=== PATIENT | female | born 1955 | race Caucasian/White ===

== ENCOUNTER 2017-06-01 10:04 | Outpatient (POV) | payer BC, SELFPAY | END 2017-06-01 12:08 | disposition home or self-care (01) | PROVIDERS: Visit Provider Podiatrist | DX: M25.572 Pain in left ankle and joints of left foot (principal); M25.571 Pain in right ankle and joints of right foot; M76.62 Achilles tendinitis, left leg; M77.8 Other enthesopathies, not elsewhere classified | CPT/HCPCS: 99213 ==

== ENCOUNTER → 2017-07-15 10:38 | Outpatient (CLI) | payer BC, SELFPAY ==
[2017-07-15 11:01] LABS: Hemoglobin A1C 6.2 % (0.0-7.0)
[2017-07-15 11:54] LABS: Alanine Aminotransferase 98 U/L (12-78); Albumin Level 4.1 gm/dL (3.4-5.0); Albumin/Globulin Ratio 1.4 (1.1-1.8); Alkaline Phosphatase 136 U/L (46-116); Anion Gap 9.2 mEq/L (5-15); Aspartate Amino Transferase 45 U/L (15-37); Bilirubin,Total 0.4 mg/dL (0.2-1.0); Blood Urea Nitrogen 14 mg/dL (7-18); Calcium 8.9 mg/dL (8.5-10.1); Carbon Dioxide 29 mmol/L (21.0-32.0); Chloride 109 mmol/L (98-107); Creatinine,Serum 0.81 mg/dL (0.55-1.02); Estimated Glomerular Filt Rate 72 ml/min (>60); Free T4 (Free Thyroxine) 1.04 ng/dl (0.76-1.46); GFR (African American) 88 ML/MIN (>60); Glucose 119 mg/dL (74-106); Potassium 4.2 mmoL/L (3.5-5.1); Sodium 143 mmol/L (136-145); Thyroid Stimulating Hormone 3.06 uIU/ml (0.358-3.740); Total Protein,Serum 7.1 gm/dL (6.4-8.2)
== END ==
PROVIDERS: PCP Nurse Practitioner Family; Visit Provider Nurse Practitioner Family
DX: R73.9 Hyperglycemia, unspecified (principal); I10 Essential (primary) hypertension; E03.9 Hypothyroidism, unspecified
CPT/HCPCS: 36415; 80053; 83036; 84439; 84443

== ENCOUNTER → 2018-03-03 11:17 | Outpatient (CLI) | payer BC, SELFPAY ==
[2018-03-03 13:11] LABS: Alanine Aminotransferase 108 U/L (12-78); Albumin Level 3.8 gm/dL (3.4-5.0); Albumin/Globulin Ratio 1.2 (1.1-1.8); Alkaline Phosphatase 118 U/L (46-116); Anion Gap 10.4 mEq/L (5-15); Aspartate Amino Transferase 49 U/L (15-37); Bilirubin,Total 0.5 mg/dL (0.2-1.0); Blood Urea Nitrogen 13 mg/dL (7-18); Calcium 8.9 mg/dL (8.5-10.1); Carbon Dioxide 28 mmol/L (21.0-32.0); Chloride 107 mmol/L (98-107); Chol/HDL Ratio 3.5 (1-3.5); Cholesterol 183 mg/dL (140-200); Creatinine,Serum 0.89 mg/dL (0.55-1.02); Estimated Glomerular Filt Rate 65 ml/min (>60); GFR (African American) 78 ML/MIN (>60); Globulin 3.3 gm/dl (1.3-3.2); Glucose 111 mg/dL (74-106); HDL Cholesterol 53 mg/dL (29-89); LDL Cholesterol 106 mg/dL (0-130); Potassium 4.4 mmoL/L (3.5-5.1); Sodium 141 mmol/L (136-145); Total Protein,Serum 7.1 gm/dL (6.4-8.2); Triglycerides 122 mg/dL (30-200); VLDL Cholesterol 24 mg/dL (0-40)
== END ==
PROVIDERS: PCP Family Medicine; Visit Provider Nurse Practitioner Family
DX: E03.9 Hypothyroidism, unspecified (principal); E78.5 Hyperlipidemia, unspecified; R94.5 Abnormal results of liver function studies
CPT/HCPCS: 36415; 80053; 80061; 84443

== ENCOUNTER 2018-08-19 17:47 | Emergency (ER) | payer BC, SELFPAY ==
[2018-08-19 18:09] VITALS: BP 154/80; PULSE 88; RESP 18; TEMP 36.9; O2SAT 94; BMI 37.9
--- NOTE | 2018-08-19 18:22 | PC.NURSE ---
dr mendosa at bedside
--- NOTE | 2018-08-19 18:22 | PC.NURSE ---
Dr Bang at bedside
--- NOTE | 2018-08-19 18:24 | XR_ITS ---
XR finger LT min 2V Ordering Physician: Freddy Bang MD Patient Age: 62 years: Female HISTORY: ITS.REASON: cut with table saw . TECHNIQUE: 3 view left index finger COMPARISON : June 2010 left hand 3 view FINDINGS Soft tissue disruption, noted at distal phalanx with soft tissue. Thumb from the recent injury. However the underlying bone appears to be intact.-Specifically the cortex of the distal tuft of thumb appears smooth and intact. No disruption or fracture evident. The remainder of the left thumb appears satisfactory an unremarkable. I suspect there is some minimal debris beneath the fingernail of the distal . The IP joint of thumb intact. The first MCP joint and carpal metacarpal joint intact. IMPRESSION: No fracture at the left thumb.. Distal tuft intact. Soft tissue injury at tip of thumb notedts [(
--- NOTE | 2018-08-19 18:24 | HMH.EDGENADL ---
ED Disposition Clinical Impression: Laceration of left thumb Qualifiers: Encounter type: initial encounter Damage to nail status: without damage Foreign body presence: without foreign body Qualified Code(s): S61.012A - Laceration without foreign body of left thumb without damage to nail, initial encounter Disposition: Home, Self-Care Condition on Discharge: Good Instructions: DI for Laceration Repair Additional Instructions: Additional instructions for HAND LACERATION: Clean the wound daily with soap and water. Avoid submerging the wound. No swimming.DO NOT USE any antibiotic ointment such as Neosporin, Polysporin, or triple antibiotic. This will delay healing. See your primary care physician in 2-3 days for a wound check. See your primary care physician or return to the [facility] in 10 days for suture removal. The [facility] is open 9 AM to 9 PM 7 days a week. Return if any signs of infection including increasing pain, pus drainage, swelling, redness, red streaks, or fever. Additional instructions for CONTROLLED SUBSTANCES: You have been prescribed a medication that is a controlled substance. Controlled substances include pain medications known as opiates and sedative nerve medications known as benzodiazepines. Some common opiates include: Codeine (such as Tylenol #3) Hydrocodone (Vicodin, Lortab, Lorcet, [place]) Oxycodone (Percocet, Percodan, Oxycodone, Oxy IR) Some common benzodiazepines include: Diazepam (Valium) Lorazepam (Ativan) Alprazolam (Xanax) Clonazepam (Klonopin) Oxazepam (Serax) All of these controlled substances are highly addictive and frequently abused. Misuse can and frequently does lead to addiction as well as overdose and . Medication should be stored in a locked cabinet or other secure storage unit. Do not store the medication in a motor vehicle. Short term supplies, 3 days or less, are prescribed because of the highly addictive nature of the medication. Any of the controlled substance medication NOT taken should be disposed of properly and NOT SAVED. The recommended method of disposing of unused medications is: Place the medicines in a sealable plastic bag. If the medicine is a solid, crush it or add water to dissolve it. Add something undesirable (cat litter, coffee grounds, etc.) Dispose of sealed bag in household trash Do not flush or pour unused medicines down a sink or drain. Controlled substances should not be shared, given away or sold. Because of the addictive nature and frequent abuse, these medications are sometimes stolen. These medications should be kept in a safe place where they cannot be stolen. Do not keep them in your car or purse. Lost or stolen prescriptions for controlled substances WILL NOT BE REFILLED in this emergency department, regardless of whether a police report was filed. Referrals: Los Dc MD [Primary Care Provider] - - Critical Care Critical Care Time: No Attestation: On , the high probability of a clinically significant, sudden or life threatening deterioration of the following system(s) required my full and direct attention, intervention and personal management. The time I documented below is in addition to time spent performing reported procedures but includes the following listed in this critical care notation. Medical Decision Making - Giovanny Inquiry Pt receiving controlled substance: Yes Giovanny was queried for this patient: Yes Reference #:: [id number] Risks and benefits of using a controlled substance: were discussed with pt by me Comment: 0 rxs. Vital Signs: 08/19/18 18:09 Temperature 98.4 F Temperature Source Oral Pulse Rate [Right Radial] 88 Respiratory Rate 18 Blood Pressure [Right Arm] 154/80 H Blood Pressure Mean [Right Arm] 104 Blood Pressure Source [Right Arm] Automatic Cuff Blood Pressure Position [Right Arm] Sitting 02 Sat by Pulse Oximetry 94 L Oxygen Delivery Method Sandra
[2018-08-19 19:32] VITALS: BP 123/78; PULSE 79; RESP 17; TEMP 36.6; O2SAT 100
== END 2018-08-19 19:35 | disposition home or self-care (01) ==
PROVIDERS: Emergency Provider Emergency Medicine; PCP Family Medicine
DX: S61.012A Laceration without foreign body of left thumb without damage to nail, initial encounter (principal); W31.2XXA Contact with powered woodworking and forming machines, initial encounter; Y92.019 Unspecified place in single-family (private) house as the place of occurrence of the external cause; E78.5 Hyperlipidemia, unspecified; I10 Essential (primary) hypertension
CPT/HCPCS: 12002; 73140; 99282

== ENCOUNTER → 2019-06-08 09:18 | Outpatient (CLI) | payer BC, SELFPAY ==
[2019-06-08 11:02] LABS: Alanine Aminotransferase 75 U/L (12-78); Albumin Level 3.8 gm/dL (3.4-5.0); Albumin/Globulin Ratio 1.2 (1.1-1.8); Alkaline Phosphatase 126 U/L (46-116); Anion Gap 12.9 mEq/L (5-15); Aspartate Amino Transferase 35 U/L (15-37); Bilirubin,Direct 0.1 mg/dL (0.0-0.2); Bilirubin,Indirect 0.4 mg/dL (0.0-0.9); Bilirubin,Total 0.5 mg/dL (0.2-1.0); Blood Urea Nitrogen 19 mg/dL (7-18); Calcium 8.8 mg/dL (8.5-10.1); Carbon Dioxide 29 mmol/L (21.0-32.0); Chloride 106 mmol/L (98-107); Creatinine,Serum 0.84 mg/dL (0.55-1.02); Estimated Glomerular Filt Rate 69 ml/min (>60); Free T4 (Free Thyroxine) 0.94 ng/dl (0.76-1.46); GFR (African American) 83 ML/MIN (>60); Globulin 3.2 gm/dl (1.3-3.2); Glucose 117 mg/dL (74-106); Potassium 4.9 mmoL/L (3.5-5.1); Sodium 143 mmol/L (136-145)
[2019-06-08 11:31] LABS: Hemoglobin A1C 6.2 % (0.0-7.0)
== END ==
PROVIDERS: Visit Provider Nurse Practitioner Family
DX: E78.5 Hyperlipidemia, unspecified (principal); R73.9 Hyperglycemia, unspecified; I10 Essential (primary) hypertension; E03.9 Hypothyroidism, unspecified
CPT/HCPCS: 36415; 80053; 80076; 83036; 84439; 84443

== ENCOUNTER → 2020-02-04 14:23 | Outpatient (CLI) | payer BC, SELFPAY ==
--- NOTE | 2020-02-04 14:29 | XR_ITS ---
PROCEDURE: XR KNEE LT 3V CLINICAL INDICATION: LT KNEE PAIN COMPARISON: No exams were available for comparison FINDINGS: No fracture or dislocation. No lytic or blastic change. There is normal mineralization. There is very minimal spurring of the medial aspect of the medial tibial plateau and along the posterior aspect of the proximal tibia. There is increased density in the suprapatellar region suggesting knee joint effusion Other findings:None. IMPRESSION: Suspect knee joint effusion with minimal degenerative changes Dictated b Diaz Castillo MD 02/04/2020 15:15 Diaz Castillo MD in [place] 02/04/2020 15:15
== END ==
PROVIDERS: PCP Nurse Practitioner Family; Visit Provider Nurse Practitioner Family
DX: M25.569 Pain in unspecified knee (principal)
CPT/HCPCS: 73562

== ENCOUNTER → 2020-05-06 09:59 | Outpatient (CLI) | payer BC, SELFPAY ==
[2020-05-06 11:51] LABS: Alanine Aminotransferase 38 U/L (12-78); Albumin Level 4.3 g/dl (3.5-5.0); Albumin/Globulin Ratio 1.6 (1.1-1.8); Alkaline Phosphatase 118 U/L (38-126); Anion Gap 9.9 mEq/L (5-15); Aspartate Amino Transferase 34 U/L (14-36); Bilirubin,Total 0.8 mg/dl (0.2-1.3); Blood Urea Nitrogen 15 mg/dl (7-17); Calcium 9.5 mg/dl (8.4-10.2); Carbon Dioxide 31 mmol/L (22.0-30.0); Chloride 106 mmol/L (98-107); Chol/HDL Ratio 3.5 (1-3.5); Cholesterol 187 mg/dl (140-200); Estimated Glomerular Filt Rate 85 ml/min (>60); GFR (African American) 103 ML/MIN (>60); Globulin 2.7 g/dL (1.3-3.2); Glucose 108 mg/dl (74-100); HDL Cholesterol 53 mg/dl (40-60); Potassium 4.9 mmoL/L (3.5-5.1); Sodium 142 mmol/L (136-145); Triglycerides 116 mg/dl (30-150); VLDL Cholesterol 23 mg/dL (0-40)
[2020-05-06 12:01] LABS: Direct LDL Cholesterol 111.24 mg/dL (100-129)
[2020-05-06 12:06] LABS: Free T4 (Free Thyroxine) 1.43 ng/dl (0.78-2.19)
[2020-05-06 12:20] LABS: Thyroid Stimulating Hormone 2.32 uIU/mL (0.465-4.68)
[2020-05-06 13:26] LABS: Hemoglobin A1C 5.6 % (4.0-6.0)
== END ==
PROVIDERS: Visit Provider Nurse Practitioner Family
DX: I10 Essential (primary) hypertension (principal); E03.9 Hypothyroidism, unspecified; E78.5 Hyperlipidemia, unspecified; R73.9 Hyperglycemia, unspecified
CPT/HCPCS: 36415; 80053; 80061; 83036; 84439; 84443

== ENCOUNTER → 2021-06-08 11:31 | Outpatient (CLI) | payer BC, SELFPAY ==
[2021-06-08 12:16] LABS: Coronavirus 19, PCR Not Detected (NotDetected); Influenza A, PCR Not Detected (NotDetected); Influenza B, PCR Not Detected (NotDetected)
[2021-06-08 12:23] LABS: Basophils # 0.1 K/mm3 (0-0.2); Basophils % 0.7 % (0.1-2.0); Eosinophils # 0.1 K/mm3 (0.0-0.4); Eosinophils % 1.4 % (0.1-12.0); Hematocrit 35.9 % (37.0-47.0); Hemoglobin 12.5 g/dL (12.2-16.2); Lymphocytes # 1.9 K/mm3 (0.7-4.5); Lymphocytes % 27.3 % (10-50); Mean Corpuscular HGB Conc 34.9 g/dL (31.8-35.4); Mean Corpuscular Hemoglobin 29.1 pg (27.0-31.2); Mean Corpuscular Volume 83.5 fl (81-99); Mean Platelet Volume 8.6 fl (7.4-10.4); Monocytes # 0.3 K/mm3 (0.1-1.0); Monocytes % 4.9 % (1.7-9.3); Neutrophils # 4.5 K/mm3 (1.8-7.8); Neutrophils % 65.7 % (37.0-80.0); Platelet Count 182 K/mm3 (142-424); Red Cell Distribution Width 14.1 % (11.5-17.5); White Blood Count 6.9 K/mm3 (4.8-10.8)
== END ==
PROVIDERS: PCP Nurse Practitioner Family; Visit Provider Nurse Practitioner
DX: Z20.822 Contact with and (suspected) exposure to COVID-19 (principal)
CPT/HCPCS: 36415; 85025; C9803; U0003; U0005

== ENCOUNTER → 2021-07-16 10:03 | Outpatient (CLI) | payer BC, SELFPAY | PROVIDERS: Visit Provider Nurse Practitioner | DX: Z20.822 Contact with and (suspected) exposure to COVID-19 (principal) | CPT/HCPCS: C9803; U0003; U0005 ==

== ENCOUNTER 2022-02-25 10:39 | Emergency (ER) | payer BC, SELFPAY ==
[2022-02-25 12:11] VITALS: BP 137/85; PULSE 74; RESP 16; TEMP 36.6; O2SAT 97; BMI 41.1
--- NOTE | 2022-02-25 12:14 | XR_ITS ---
FINAL REPORT CLINICAL HISTORY: pain in knee, medial knee pain after stepping off a director foundation FINDINGS: RIGHT KNEE Three views of the right knee were obtained. There is no acute fracture or dislocation. There is some mild narrowing of the lateral compartment joint space. There are osteophytes seen at the right lateral joint margin. Soft tissues are unremarkable. IMPRESSION: No acute bony abnormality. Reviewed, Interpreted and Dictated by Yomi Edge MD Transcribed by Mary Ellen Larson Authenticated and [facility]
--- NOTE | 2022-02-25 12:18 | EXP.UTC ---
Discharge Plan Disposition Patient Disposition: Home, Self-Care Condition: Good Referrals Referrals: Griselda Hughes APRN [Primary Care Provider] - Enter time for follow up Activity Restrictions/Add. Instructions Additional Instructions/Restrictions: Rest the extremity, apply ice for 15 minutes as tolerated three or four times per day, Wear the kareem wrap for compression, Elevate the extremity as tolerated while you are resting. Take ibuprofen for pain. I sent in a prescription to your pharmacy. Follow up with your orthopedic physician. Make sure you take the disk with the x-rays on it from here. Follow up with your regular doctor. GO TO THE ER FOR ANY WORSENING SYMPTOMS Clinical Impressions Clinical Impression: Right knee sprain Instructions Patient Instructions: How to Use Crutches, DI for Knee Sprain, How to Use a Knee Immobilizer Discharge ED Provider: Fantasma Mendoza [facility] General Stated complaint: RT knee pain Mode of Arrival: Ambulatory Source of Information: Patient Limitations: No Limitations Time Seen by Provider: 02/25/22 11:45 Description of Symptoms (Recalled from Triage Doc. by RN): patient comes in with right knee pain. 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 HEENT Symptoms (Recalled from RN notes): No Resp Symptoms (Recalled from RN notes): No Skin Symptoms (Recalled from RN notes): No MS Symptoms (Recalled from RN notes): Yes Functional Status (Recalled from RN notes): n/a History of Present Illness Provider Complaint: She is having right knee pain and swelling. Her symptoms began after she almost fell yesterday and twisted her right knee in the process. She denies any other injury. Related Data Allergies Allergy/AdvReac Type Severity Reaction Status Date / Time No Known Allergies Allergy Verified 02/25/22 12:13 Worker's Comp Is this a Worker's Comp case?: No PFSH [facility] Social History Smoking Status: Never smoker alcohol intake: never current occupational status: employed ROS Obtained: Yes All systems reviewed & no additional complaints except as documented Constitutional Constitutional: Denies chills and Denies fever(s) Integumentary/Breasts Skin/Breast: Denies redness, Denies rash and Denies wounds Neurologic Neurologic: Denies paresthesias Physical Exam General General appearance: alert and in no apparent distress Head Head exam: atraumatic, normocephalic and normal inspection Eye Eye exam: Present normal appearance, PERRL and EOMI ENT ENT exam: Present normal exam, normal oropharynx, mucous membranes moist, TM's normal bilaterally and normal external ear exam Neck Neck exam: Present normal inspection, full ROM and trachea midline; Absent meningismus or lymphadenopathy Chest Chest inspection: Present normal inspection and symmetric chest wall rise; Absent tenderness Respiratory Respiratory exam: Present normal lung sounds bilaterally; Absent respiratory distress Cardiovascular Cardiovascular exam: Present regular rate and normal rhythm; Absent JVD Abdominal Exam Abdominal exam: Present soft and normal bowel sounds; Absent distention, tenderness or guarding Extremities Exam Extremities exam: Present normal inspection, full ROM and normal capillary refill; Absent calf tenderness Expanded Lower Extremity Exam Right: Hip/Pelvis exam: Present normal inspection and full ROM; Absent tenderness Upper leg exam: Present normal inspection and full ROM; Absent tenderness Knee exam: Present tenderness, swelling and knee extension intact; Absent abrasion, laceration, ecchymosis, deformity, crepitus, dislocation, erythema, effusion, anterior drawer sign, posterior draw sign, pain with valgus, laxity with valgus, pain with varus, laxity with varus or other Lower leg exam: Present normal inspection and full ROM; Absent tenderness Ankle exam: Present normal i
[2022-02-25 13:30] VITALS: BP 137/85; PULSE 74; RESP 16; TEMP 36.6
== END 2022-02-25 13:31 | disposition home or self-care (01) ==
PROVIDERS: Emergency Provider Nurse Practitioner Family; PCP Nurse Practitioner Family
DX: S83.91XA Sprain of unspecified site of right knee, initial encounter (principal); X50.1XXA Overexertion from prolonged static or awkward postures, initial encounter
CPT/HCPCS: 73562; 99213; G0463

== ENCOUNTER 2025-02-25 11:10 | Outpatient (CLI) | payer MEDICARE, SELFPAY ==
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
--- OUTSIDE RECORDS SUMMARY | 2024-04-25 04:25 | XMS_ITS ---
Author Organization [facility] Address [address] [place] [address] [facility] [address] [id number] Care Team Providers Care Alternative Education Teacher Name Role Phone Wale Hook Primary Care Provider [phone] Una Hughes Unavailable [phone] Results Component Value Reference Range Notes Glycohemoglobin A1c (in hous e) Reviewed date:04/29/2024 09:50:34 AM Interpretation:5.8 Performing Lab: Notes/Report: 5.8 glycohemoglobin 5.8% 5 - 6.5 % P-CBC with Diff plus Absolut e Counts Reviewed date:04/29/2024 09:50:55 AM Interpretation: Performing Lab: Notes/Report: Test performed by [facility], [address] , [address], [place] [address] Mike Fernandez MD, Engraver Wood CLIA: [id number] WBC 5.6 3.8-11.5 K/uL Red Blood Cell Count (RBC) 4.28 3.60-5.30 M/mm 3 Hemoglobin (Hgb) 11.9 11.5-15.5 gm/dL Hematocrit (HCT) 36.9 35.2-46.4 % MCV 86.2 79.0-99.0 fL MCH 27.8 26.9-35.0 pg MCHC 32.2 30.4-34.8 g/dL RDW 44.8 38.6-53.8 fL Platelet Count 184 137-397 K/cumm Neutrophils Automated 59.1 41.0-77.0 % Lymphocytes Automated 29.1 14.0-48.0 % Monocytes Automated 7.9 4.0-13.0 % Eosinophils Automated 1.8 0.0-8.0 % Basophils Automated 0.7 0.0-1.5 % Immature Granulocyte Automated 1.4 0.0-1.0 % Immature Granulocytes may be falsely elevated due to cellular degeneration and/or debris. This is typically seen when specimen handling, transport, and/or storage issues occur prior to testing of the specimen(s) (the preanalytical phase). Absolute Neutrophil Count 3.3 2.0-8.2 K/uL Absolute Lymphocyte Count 1.6 0.9-3.6 K/uL Absolute Monocyte Count 0.4 0.3-1.0 K/uL Absolute Eosinophil Count 0.1 0.0-0.6 K/uL Absolute Basophil Count 0.0 0.0-0.1 K/uL Absolute Immature Granulocyte 0.08 0.00-0.03 K /uL P-Comprehensive Metabolic Pa jocy (CMP) Reviewed date:04/29/2024 09:51:36 AM Interpretation:gluc 108, alk phos 144, alt 50 Performing Lab: Notes/Report: Test performed by [facility] [address] [place], [place] [address] [place] , [address], [place] [address] Mike Fernandez MD, Engraver Wood CLIA: [id number] Sodium 143 135-145 mmol/L Potassium 4.6 3.5-5.3 mmol/L Chloride 106 97-108 mmol/L CO2 29 22-32 mmol/L Glucose 108 65-99 mg/dL BUN 17 8-23 mg/dL Creatinine 0.68 0.50-1.00 mg/dL Calcium 9.2 8.6-10.4 mg/dL eGFR by Creatinine 96 >59 mL/min/1.73m2 Protein 6.9 6.0-8.3 g/dL Albumin 4.0 3.5-5.3 g/dL Alkaline Phosphatase 144 35-121 IU/L ALT (SGPT) 50 <5-47 IU/L AST (SGOT) 39 <5-40 IU/L Bilirubin, Total 0.4 <0.2-1.2 mg/dL A/G Ratio 1.4 1.1-2.5 P-Lipid Panel Reviewed date:04/29/2024 09:50:11 AM Interpretation:non-hdl 134 Performing Lab: Notes/Report: Test performed by [facility] [address] [facility] , [address], [place] [address] Mike Fernandez MD, Engraver Wood CLIA: [id number] Cholesterol 177 <200 mg/dL Triglycerides 116 <150 mg/dL HDL Cholesterol 43 >39 mg/dL Cholesterol / HDL Ratio 4.12 0.00-4.44 Ratio Non-HDL Cholesterol 134 <130 mg/dL LDL Cholesterol (Calculation) 111 <130 mg/dL LDL Cholesterol Levels* Less than 100 mg/dL Optimal 100 to 129 mg/dL Near Optimal/ Above Optimal 130 to 159 mg/dL Borderline High 160 to 189 mg/dL High 190 mg/dL and above Very High * Categories as recommended by the 2004 ATPIII guidelines LDL/HDL Ratio 2.6 <3.3 Ratio LDL Cholesterol Patient History Test Date: 04/25/2024 LDL Results: 111 Units: mg/dL % Change: - P-TSH Reviewed date:04/29/2024 09:51:15 AM Interpretation:Normal Performing Lab: Notes/Report: Test performed by [facility], [facility] [address] [facility] , [address], [place] [address] Mike Fernandez MD, Engraver Wood CLIA: [id number] TSH 1.75 0.43-5.25 mU/L REASON FOR VISIT blood work Encounters Encounter Location Date Provider Diagnosis [facility] [address] [id number] 04/25/2024 Una Hughes Essential hypertensi on I10 ; Mixed hyperlipidemia E78.2 ; Hypothyroidism E03.9 and Diabetes mellitus screening Z13.1 Assessments Encounter Date Diagnosis (ICD Code) Assessment Notes Treatment Notes Treatment Clinical Notes Section Notes 04/25/2024 Essential hypertension (ICD-10 - I10) 04/25/2024 Mixed hyperlipidemia (ICD-10 - E78.2) 04/25/2024 Hypothyroidism (ICD-10 - E03.9) 04/25/2024 Diabetes mellitus screening (ICD-10 - Z13.1) Plan Of Treatment No Information Progress Notes * HERNANDO PETTITDOB: (69 yo F)Acc No.[id number]:04/25/2024 Patient: RANDELL BUSHNA Provider: GENOVEVA Dumont :1955 A ge:68 Y S ex:Female Date:04/25/2024 Address:[address] [place] [address] [phone] Pcp:Wale Hook Subjective: * Chief Complaints: * 1 . Blood work. * Medical History: Objective: * Vitals: Assessment: * Assessment: 1. E ssential hypertension - I10 2 . M ixed hyperlipidemia - E78.2 ? 3 . H ypothyroidism - E03.9 4 . D iabetes mellitus screening - Z13.1? Plan: * Treatment: Value Reference Range A bsolute Basophil Count 0.0 0.0-0.1 - K/uL * A bsolute Eosinophil Count 0.1 0.0-0.6 - K/uL * A bsolute Immature Granulocyte 0.08 H 0.00-0.03 - K/uL * A bsolute Lymphocyte Count 1.6 0.9-3.6 - K/uL * A bsolute Monocyte Count 0.4 0.3-1.0 - K/uL * A bsolute Neutrophil Count 3.3 2.0-8.2 - K/uL * B asophils Automated 0.7 0.0-1.5 - % * E osinophils Automated 1.8 0.0-8.0 - % * H ematocrit (HCT) 36.9 35.2-46.4 - % * H emoglobin (Hgb) 11.9 11.5-15.5 - gm/dL * I mmature Granulocyte Automated 1.4 H 0.0-1.0 - % * L ymphocytes Automated 29.1 14.0-48.0 - % * M CH 27.8 26.9-35.0 - pg * M CHC 32.2 30.4-34.8 - g/dL * M CV 86.2 79.0-99.0 - fL * M onocytes Automated 7.9 4.0-13.0 - % * P latelet Count 184 137-397 - K/cumm * R ed Blood Cell Count (RBC) 4.28 3.60-5.30 - M/ mm3 * R DW 44.8 38.6-53.8 - fL * N eutrophils Automated 59.1 41.0-77.0 - % * W BC 5.6 3.8-11.5 - K/uL * Una Hughes 04/29/2024 9:50:42 AM > I spoke with pt and reported results ?LAB: P-Comprehensive Metabolic Panel (CMP) (Collection Date & Time - 04/25/2024 07:11 AM)?gluc 108, alk phos 144, alt 50* Value Reference Range A /G Ratio 1.4 1.1-2.5 - * A lbumin 4.0 3.5-5.3 - g/dL * A lkaline Phosphatase 144 H 35-121 - IU/L * A LT (SGPT) 50 H <5-47 - IU/L * A ST (SGOT) 39 <5-40 - IU/L * B ilirubin, Total 0.4 <0.2-1.2 - mg/dL * B UN 17 8-23 - mg/dL * C alcium 9.2 8.6-10.4 - mg/dL * C hloride 106 97-108 - mmol/L * C O2 29 22-32 - mmol/L * C reatinine 0.68 0.50-1.00 - mg/dL * G lucose 108 H 65-99 - mg/dL * P otassium 4.6 3.5-5.3 - mmol/L * S odium 143 135-145 - mmol/L * P rotein 6.9 6.0-8.3 - g/dL * e GFR by Creatinine 96 >59 - mL/min/1.73m2 * SaulUna 04/29/2024 9:51:23 AM > I spoke with pt and reported results 2.?Mixed hyperlipidemia?LAB: P-Lipid Panel (Collection Date & Time - 04/25/2024 07:11 AM)?non-hdl 134* Value Reference Range C holesterol / HDL Ratio 4.12 0.00-4.44 - Ratio * C holesterol 177 <200 - mg/dL * H DL Cholesterol 43 >39 - mg/dL * L DL Cholesterol (Calculation) 111 <130 - mg/d L * L DL/HDL Ratio 2.6 <3.3 - Ratio * N on-HDL Cholesterol 134 H <130 - mg/dL * T riglycerides 116 <150 - mg/dL * Una Hughes 04/29/2024 9:49:39 AM > I spoke with pt and reported results 3.?Hypothyroidism?LAB: P-CBC with Diff plus Absolute Counts (Collection Date & Time - 04/25/2024 07:11 AM)* Value Reference Range A bsolute Basophil Count 0.0 0.0-0.1 - K/uL * A bsolute Eosinophil Count 0.1 0.0-0.6 - K/uL * A bsolute Immature Granulocyte 0.08 H 0.00-0.03 - K/uL * A bsolute Lymphocyte Count 1.6 0.9-3.6 - K/uL * A bsolute Monocyte Count 0.4 0.3-1.0 - K/uL * A bsolute Neutrophil Count 3.3 2.0-8.2 - K/uL * B asophils Automated 0.7 0.0-1.5 - % * E osinophils Automated 1.8 0.0-8.0 - % * H ematocrit (HCT) 36.9 35.2-46.4 - % * H emoglobin (Hgb) 11.9 11.5-15.5 - gm/dL * I mmature Granulocyte Automated 1.4 H 0.0-1.0 - % * L ymphocytes Automated 29.1 14.0-48.0 - % * M CH 27.8 26.9-35.0 - pg * M CHC 32.2 30.4-34.8 - g/dL * M CV 86.2 79.0-99.0 - fL * M onocytes Automated 7.9 4.0-13.0 - % * P latelet Count 184 137-397 - K/cumm * R ed Blood Cell Count (RBC) 4.28 3.60-5.30 - M/ mm3 * R DW 44.8 38.6-53.8 - fL * N eutrophils Automated 59.1 41.0-77.0 - % * W BC 5.6 3.8-11.5 - K/uL * Una Hughes 04/29/2024 9:50:42 AM > I spoke with pt and reported results ?LAB: P-TSH (Collection Date & Time - 04/25/2024 07:11 AM)?Normal* Value Reference Range T SH 1.75 0.43-5.25 - mU/L * Una Hughes 04/29/2024 9:51:03 AM > I spoke with pt and reported results 4.?Diabetes mellitus screening?LAB: Glycohemoglobin A1c (in house) (Collection Date & Time - 04/25/2024)? 5.8* Value Reference Range g lycohemoglobin 5.8% 5 - 6.5 % * Christine Burgess 04/25/2024 8: 22:05 AM >Una Hughes 04/29/2024 9:50:18 AM > i spoke with pt and reported results * Procedure Codes: 3 6416 CAPILLARY BLOOD DRAW, 52681 GLYCATED HEMOGLOBIN TEST, Modifiers: QW * Images: Billing Information: * Visit Code: * Procedure Codes: 04361 CAPILLARY BLOOD DRAW. 51295 GLYCATED HEMOGLOBIN TEST. Modifiers: QW * Electronic signature of Allison Hughes APRN on 02/25/2025 at 11:30 AM EDT Sign off status: Pending * Provider: GENOVEVA Dumont Date: 1 Generated for Rafael uribe/Laron/Kassy on: 0 02/25/2025 11:30 AM EDT
--- NOTE | 2025-02-25 11:22 | XR_ITS ---
FINAL REPORT CLINICAL HISTORY: pain FINDINGS: AP and frog leg views of the right hip were obtained. There is no acute fracture or dislocation. Joint space is preserved. Soft tissues are unremarkable. IMPRESSION: No acute osseous abnormality of the right hip. Reviewed, Interpreted and Dictated by Zaira Coleman MD Transcribed by Griselda Reid Authenticated and [facility]
--- NOTE | 2025-02-25 11:22 | XR_ITS ---
FINAL REPORT CLINICAL HISTORY: BI LAT HIP PAIN FINDINGS: AP and frog leg views of the left hip were obtained. There is a lucency through the greater trochanter on the AP view, age-indeterminate fracture is not excluded. There is no dislocation. The remaining pelvis is without acute abnormality. Joint space is preserved. Soft tissues are unremarkable. IMPRESSION: Lucency through the greater trochanter, age-indeterminate fracture is not excluded. Consider CT or MRI. Reviewed, Interpreted and Dictated by Zaira Coleman MD Transcribed by Griselda Reid Authenticated and [facility]
--- OUTSIDE RECORDS SUMMARY | 2025-02-25 11:30 | XMS_ITS | Clinical Summary ---
Author Organization [facility] Address [address] [place] [id number] Phone [email or web address] Care Team Providers Care National Sales Manager Name Role Phone Unavailable Primary Care Provider Unavailabl e Allergies No known active allergies Medications aspirin EC 81 MG EC tablet Take 81 mg by mouth. Active atorvastatin (LIPITOR) 20 MG tablet 02/23/2018 Active furosemide (LASIX) 20 MG tablet Take 20 mg by mouth. Active levothyroxine (SYNTHROID, LEVOTHROID) 175 MCG tablet 01/01/2018 Active lisinopril (PRINIVIL,ZESTRI L) 10 MG tablet 02/20/2018 Act og metoprolol succinate XL (TOPROL-XL) 50 MG 24 hr tablet Take 50 mg by mouth. Active sertraline (ZOLOFT) 100 MG tablet 02/23/2018 Active valACYclovir (VALTREX) 1 g tabletIndication s:Herpes labialis Take 1 tablet (1,000 mg total) by mouth 1 (one) time each day. 30 tablet 1 03/22/2018 Active Active Problems Problem Noted Date Diagnosed Date Hypothyroidism 11/29/2016 Mixed hyperlipidemia 11/29/2016 Obesity 11/29/2016 Essential hypertension 11/29/2016 URBAN (dyspnea on exertion) 11/29/2016 Social History Tobacco Use Types Packs/Day Years Used Date Smoking Tobacco: Never Smokeless Tobacco: Never Tobacco Cessation:Counseling Given: No Alcohol Use Standard Drinks/Week Comments No 0 (1 standard drink = 0.6 oz pur e alcohol) Intimate Partner Violence Answer Date R ecorded Insults You Not on file 10/13/2020 Threatens You Not on file 10/13/2020 Screams at You Not on file 10/13/2020 Physically Hurt Not on file 10/13/2020 Intimate Partner Violence Score Not on file 10/13/2020 Stress Answer Date Recorded Stress in your Life 0 08/14/2020 Dealing with Stress Not on file 08/14/2020 Comments No Sex and Gender Information Value Date Recorded Sex Assigned at Not on file Legal Sex Female 7:25 AM CDT Gender Identity Not on file Sexual Orientation Not on file Last Filed Vital Signs Vital Sign Reading Time Taken Comments Blood Pressure 150/76 05/06/2019 4:33 PM EST Pulse 80 05/06/2019 4:33 PM EST Temperature 37.2 C (98.9 F) 03/22/2018 8:55 AM EDT Respiratory Rate 14 03/22/2018 8:55 AM EDT Oxygen Saturation 97% 03/22/2018 8:55 AM EDT Inhaled Oxygen Concentration - - Weight 122 kg (269 lb) 05/06/2019 4:33 PM EST Height 167.6 cm (5' 6 ) 05/06/2019 4:33 PM EST Body Mass Index 43.42 05/06/2019 4:33 PM EST Plan of Treatment Health Maintenance Due Date Last Done Comments CT Colonography 1955 Colonoscopy 1955 Colorectal Cancer Screening Combo 1955 DNA Cologuard 1955 Dental Cleaning/Exam 1955 FIT or FOBT Test 1955 Sigmoidoscopy 1955 Tetanus Diphtheria and Pertu ssis Immunization (1 - Tdap) 1976 Breast Cancer Screening 09/23/1987 Osteoporosis screening DEXA 09/23/2007 Pneumococcal: 65+ Years (1 o f 1 - PCV) 09/23/2007 Zoster Immunization (1 of 2) 09/23/2007 Covid-19 Immunization (1 - 2 season) 2024 Influenza Immunization (#1) 2025 HIB Immunization Aged Out No longer e ligible based on patient's age to complete this topic HPV Immunization Aged Out No longer e ligible based on patient's age to complete this topic Hepatitis A Immunization Aged Out No longer eligible based on patient's age to complete this topic Hepatitis B Immunization Aged Out No longer eligible based on patient's age to complete this topic Polio Immunization Aged Out No longer eligible based on patient's age to complete this topic Insurance [address] [place] [address] [address] [id number] [place] [address]
--- OUTSIDE RECORDS SUMMARY | 2025-02-25 11:30 | XMS_ITS | Clinical Summary ---
Author Organization [facility] Address [address] [place] [address] Care Team Providers Care Chief Science Officer Name Role Phone Los Dc MD Primary Care Provider Allergies No known active allergies Medications metoprolol succinate XL (TOPROL-XL) 50 MG 24 hr tablet Take 50 mg by mouth Daily. Active lisinopril (PRINIVIL,ZESTRI L) 10 MG tablet Take 10 mg by mouth Daily. Active levothyroxine (SYNTHROID, LEVOTHROID) 175 MCG tablet Take 175 mcg by mouth Daily. Active furosemide (LASIX) 20 MG tablet Take 20 mg by mouth Daily. Active SERTRALINE HCL PO Take 200 mg by mouth Daily. Active atorvastatin (LIPITOR) 20 MG tablet Take 20 mg by mouth Daily. Active aspirin 81 MG EC tablet Take 81 mg by mouth Daily. Active Active Problems Problem Noted Date Diagnosed Date Mixed hyperlipidemia 11/29/2016 Obesity 11/29/2016 Essential hypertension 11/29/2016 URBAN (dyspnea on exertion) 11/29/2016 Hypothyroidism 11/29/2016 Family History Medical History Relation Name Comments Other Father Cancer Mother Relation Name Status Comments Father Mother Social History Tobacco Use Types Packs/Day Years Used Date Smoking Tobacco: Never Smokeless Tobacco: Never Alcohol Use Standard Drinks/Week Comments No 0 (1 standard drink = 0.6 oz pur e alcohol) Abuse Screen Answer Date Recorded Unsafe at Home or Work/School Not on file Feels Threatened by Someone? Not on file 03/2023 Does Anyone Keep You from Co ntacting Others or Doint Things Outside the Home? Not on file 04/10/2023 Physical Sign of Abuse Present Not on file 1 Housing Stability Answer Date Recorded Current Living Arrangements Not on file 03/2023 Potentially Unsafe Housing Conditions Not on tonio e 04/10/2023 Family and Community Support Answer Wilfrid e Recorded Help with Day-to-Day Activities Not on file 04/10/2023 Lonely or Isolated Not on file 04/10/2023 Employment Answer Date Recorded Do you want help finding or keeping work or a brayan b? Not on file 04/10/2023 Disabilities Answer Date Recorded Concentrating, Remembering, or Making Decisions Difficulty Not on file 04/10/2023 Doing Errands Independently Difficulty Not on fi le 04/10/2023 Education Answer Date Recorded Help with school or training? Not on file Preferred Language Not on file 04/10/2023 Comments Unknown Sex and Gender Information Value Date Recorded Sex Assigned at Not on file Legal Sex Female 10:03 AM EDT Gender Identity Not on file Sexual Orientation Not on file Last Filed Vital Signs Vital Sign Reading Time Taken Comments Blood Pressure 145/81 11/29/2016 11:57 AM EDT Pulse 72 11/29/2016 11:57 AM EDT Temperature - - Respiratory Rate - - Oxygen Saturation - - Inhaled Oxygen Concentration - - Weight 121 kg (267 lb 6.4 oz) 11/29/2016 11:54 A M EDT Height 167.6 cm (5' 6 ) 11/29/2016 11:54 AM EDT Body Mass Index 43.16 11/29/2016 11:54 AM EDT Plan of Treatment Health Maintenance Due Date Last Done Comments DXA SCAN 1955 LIPID PANEL 1957 TDAP/TD VACCINES (1 - Tdap) 1976 MAMMOGRAM 1997 COLOGUARD 2002 COLON CANCER SCREENING 5 YEAR SIGMOIDOSCOPY 2002 COLONOSCOPY 2002 [address] CANCER SCREENING [address] CT COLONOGRAPHY 2002 FECAL OCCULT BLOOD TEST 2002 FIT Testing (1 year) 2002 Pneumococcal Vaccine 50+ (1 of 1 - PCV) 09/23/2007 ZOSTER VACCINE (1 of 2) 09/23/2007 ANNUAL PHYSICAL 11/25/2016 HEPATITIS C SCREENING 11/25/2016 COVID-19 Vaccine (1 - 2023- season) 2024 INFLUENZA VACCINE 04/02/2025 Insurance [address] [id number] [facility] PPO Care Teams Chief Science Officer Relationship Specialty Start Date End Date Los Dc MD [address] [facility] [address] [place] [id number] PCP - General Family Medicine 11/29/16
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
== END 2025-02-25 23:59 | disposition home or self-care (01) ==
LOC: RAD 11:14
PROVIDERS: PCP Nurse Practitioner Family; Visit Provider Nurse Practitioner Family
DX: M25.552 Pain in left hip (principal); M25.551 Pain in right hip
CPT/HCPCS: 73502